=== PATIENT | female | born 1950 | race Caucasian/White ===

== ENCOUNTER 2018-02-26 10:24 | Inpatient (IN) | payer MEDICARE ==
[~2018-02-26] VITALS: Ht 160 cm; Wt 60.5 kg
[2018-02-26 11:30] LABS: BASOPHILS % (AUTO) 0.4 % (0-1); EOSINOPHILS # (AUTO) 0.2 X10'3 (0-0.9); HEMATOCRIT 39.9 % (35.0-45.0); HEMOGLOBIN 12.9 g/dl (12.0-16.0); LYMPHOCYTES # (AUTO) 1.6 X10'3 (1.1-4.8); LYMPHOCYTES % (AUTO) 24.3 % (21-51); MEAN CORPUSCULAR HEMOGLOBIN 29.6 PG (27.0-31.0); MEAN CORPUSCULAR HGB CONC 32.5 % (33.0-36.5); MEAN CORPUSCULAR VOLUME 91.2 FL (78-98); MEAN PLATELET VOLUME 7.6 FL (7.4-10.4); MONOCYTES # (AUTO) 0.6 X10'3 (0-0.9); MONOCYTES % (AUTO) 9.2 % (2-12); NEUTROPHILS # (AUTO) 4.1 X10'3 (1.8-7.7); NEUTROPHILS % (AUTO) 63.1 % (42-75); PLATELET COUNT 372 X10'3 (140-440); RED BLOOD COUNT 4.37 X10'6 (4.20-5.60); RED CELL DISTRIBUTION WIDTH 14.6 % (11.5-14.5); WHITE BLOOD COUNT 6.5 X10'3 (4.5-11.0)
[2018-02-26 11:36] LABS: PARTIAL THROMBOPLASTIN TIME 26 SECONDS (22-32); PROTHROMBIN TIME 10.1 SECONDS (9.0-12.0)
[2018-02-26 11:38] LABS: ALANINE AMINOTRANSFERASE 22 U/L (12-78); ALBUMIN 3.9 G/DL (3.4-5.0); ALBUMIN/GLOBULIN RATIO 1.3 (1.1-1.5); ALKALINE PHOSPHATASE 80 IU/L (46-116); ANION GAP 8 (8-16); ASPARTATE AMINO TRANSFERASE 18 U/L (10-37); BILIRUBIN,TOTAL 0.5 MG/DL (0.1-1.0); BLOOD UREA NITROGEN 20 MG/DL (7-18); BUN/CREATININE RATIO 22.5 (6.6-38.0); CALCIUM 9.2 MG/DL (8.5-10.1); CHLORIDE 105 MMOL/L (99-107); CREATININE 0.89 MG/DL (0.40-0.90); GLUCOSE 102 MG/DL (70-104); POTASSIUM 4.1 MMOL/L (3.5-5.1); SODIUM 141 MMOL/L (135-145); TOTAL CARBON DIOXIDE 27.8 MMOL/L (24-32); eGFR 63 ML/MIN
[2018-02-26] MEDS ORDERED: potassium Cl 40MEQ/NS 500ml 500 ML IV PRN ×2 (12:15)
[2018-02-26] MEDS ORDERED: magnesium 4gm in 100ml NS 100 ML IV PRN (12:15)
[2018-02-26] MEDS ORDERED: morphine 2 MG/ML inj. syringe IV PRN (12:15)
[2018-02-26] MEDS ORDERED: magnesium Cl slow-release 64mg tablet PO PRN (12:15)
[2018-02-26] MEDS ORDERED: ondansetron/PF 4mg/2ml inj IV PRN (12:15)
[2018-02-26] MEDS ORDERED: potassium Cl 20 mEq SR tablet PO PRN ×2 (12:15)
[2018-02-26] MEDS ORDERED: NO HOME MEDS (12:38)
[2018-02-26] MEDS ORDERED: acetaminophen 325mg tablet PO ONE (15:25)
[2018-02-26 17:00] VITALS: BP 115/68
[2018-02-26] MEDS ORDERED: aminophylline 250mg/10ml inj. IV PRN (17:45)
[2018-02-26] MEDS ORDERED: regadenoson 0.4mg/5ml syringe IV PRN (17:45)
[2018-02-26] MEDS ORDERED: metoprolol tartrate 1mg/ml inj IV PRN (17:45)
[2018-02-26] MEDS ORDERED: nitroGLYCERIN 0.4mg SUBLingual tab SL PRN (17:45)
[2018-02-26] MEDS ORDERED: LORazepam 2 mg/ml vial IV ONE (19:35)
[2018-02-26 20:00] VITALS: BP 109/69
[2018-02-26] MEDS ORDERED: famotidine 20mg tablet PO SCH (21:00)
[2018-02-27] VITALS (12 sets, daily range): BP systolic 98–115; BP diastolic 52–67
[2018-02-27 05:16] LABS: BASOPHILS % (AUTO) 0.4 % (0-1); EOSINOPHILS # (AUTO) 0.3 X10'3 (0-0.9); EOSINOPHILS % (AUTO) 5.1 % (0-6); HEMOGLOBIN 12.5 g/dl (12.0-16.0); LYMPHOCYTES # (AUTO) 1.5 X10'3 (1.1-4.8); LYMPHOCYTES % (AUTO) 28.6 % (21-51); MEAN CORPUSCULAR HEMOGLOBIN 30.1 PG (27.0-31.0); MEAN CORPUSCULAR HGB CONC 32.9 % (33.0-36.5); MEAN CORPUSCULAR VOLUME 91.4 FL (78-98); MEAN PLATELET VOLUME 7.8 FL (7.4-10.4); MONOCYTES # (AUTO) 0.6 X10'3 (0-0.9); MONOCYTES % (AUTO) 11.2 % (2-12); NEUTROPHILS # (AUTO) 2.8 X10'3 (1.8-7.7); NEUTROPHILS % (AUTO) 54.7 % (42-75); PLATELET COUNT 324 X10'3 (140-440); RED BLOOD COUNT 4.16 X10'6 (4.20-5.60); RED CELL DISTRIBUTION WIDTH 14.6 % (11.5-14.5); WHITE BLOOD COUNT 5.2 X10'3 (4.5-11.0)
[2018-02-27 05:19] LABS: ALBUMIN 3.4 G/DL (3.4-5.0); ANION GAP 10 (8-16); BLOOD UREA NITROGEN 18 MG/DL (7-18); BUN/CREATININE RATIO 19.8 (6.6-38.0); CALCIUM 8.5 MG/DL (8.5-10.1); CHLORIDE 105 MMOL/L (99-107); CREATININE 0.91 MG/DL (0.40-0.90); GLUCOSE 96 MG/DL (70-104); MAGNESIUM 2.2 MG/DL (1.5-2.4); POTASSIUM 4.1 MMOL/L (3.5-5.1); SODIUM 141 MMOL/L (135-145); TOTAL CARBON DIOXIDE 26.2 MMOL/L (24-32); eGFR 61 ML/MIN
[2018-02-27] MEDS ORDERED: mag hydrox/Alum hydrox/simeth 30ml oral suspension PO PRN (08:00)
[2018-02-27] MEDS ORDERED: acetaminophen 325mg tablet PO PRN (08:00)
[2018-02-27] MEDS ORDERED: K and/or MAG REPLACEMENT MC SCH (08:00)
[2018-02-27] MEDS ORDERED: regadenoson 0.4mg/5ml syringe IV ONE (09:11)
[2018-02-27] MEDS ORDERED: aminophylline inj. 10 ML IV ONE (09:11)
[2018-02-27] MEDS ORDERED: pneumococcal 23-VAL P-sac vacc 25 mcg/0.5ml vial IMVAC ONE (10:00)
[2018-02-27] MEDS ORDERED: PANT-47 PO (12:57)
== END 2018-02-27 14:00 | disposition home or self-care (01) | DRG 392 ==
LOC: ER 10:25 → ED HOLD 12:13 → SUR 3N 15:31
PROVIDERS: ADMIT Internal Medicine; ATTEND Family Medicine
PROC: 3E02340 Introduction of Influenza Vaccine into Muscle, Percutaneous Approach (ICD-10-PCS; principal; 2018-02-27)
PROC: 3E0234Z Introduction of Serum, Toxoid and Vaccine into Muscle, Percutaneous Approach (ICD-10-PCS; 2018-02-27)
PROC: 4A02XM4 Measurement of Cardiac Total Activity, External Approach (ICD-10-PCS; 2018-02-27)
PROC: 3E033HZ Introduction of Radioactive Substance into Peripheral Vein, Percutaneous Approach (ICD-10-PCS; 2018-02-27)
DX: K21.9 Gastro-esophageal reflux disease without esophagitis (principal); I49.3 Ventricular premature depolarization; M79.602 Pain in left arm; Z23 Encounter for immunization; Z90.710 Acquired absence of both cervix and uterus; Z88.6 Allergy status to analgesic agent; Z79.899 Other long term (current) drug therapy
CPT/HCPCS: 36415; 71045; 78452; 80048; 80053; 83735; 84484; 85025; 85610; 85730; 87070; 90732; 93005; 93017; 99285; A9500; G0378; J0280; J2060; J2270; J2405; Q2037

== ENCOUNTER 2021-11-26 10:54 | Observation (INO) | payer MEDICARE ==
[~2021-11-26] VITALS: Ht 160 cm; Wt 60.3 kg
[~2021-11-26 10:54] MED LIST: PANT-47 PO
[2021-11-26 12:19] LABS: BASOPHILS % (AUTO) 0.7 % (0-1); EOSINOPHILS # (AUTO) 0.2 X10'3 (0-0.9); EOSINOPHILS % (AUTO) 3.3 % (0-6); HEMATOCRIT 37.4 % (35.0-45.0); HEMOGLOBIN 12.5 g/dl (12.0-16.0); LYMPHOCYTES # (AUTO) 2.1 X10'3 (1.1-4.8); LYMPHOCYTES % (AUTO) 29.5 % (21-51); MEAN CORPUSCULAR HEMOGLOBIN 28.7 PG (27.0-31.0); MEAN CORPUSCULAR HGB CONC 33.5 g/dL (33.0-36.5); MEAN CORPUSCULAR VOLUME 85.7 FL (78-98); MONOCYTES # (AUTO) 0.8 X10'3 (0-0.9); NEUTROPHILS # (AUTO) 3.9 X10'3 (1.8-7.7); NEUTROPHILS % (AUTO) 55.5 % (42-75); PLATELET COUNT 347 X10'3 (140-440); RED BLOOD COUNT 4.37 X10'6 (4.20-5.60); RED CELL DISTRIBUTION WIDTH 16.2 % (11.5-14.5)
[2021-11-26 12:31] LABS: ALANINE AMINOTRANSFERASE 25 U/L (12-78); ALBUMIN 4.1 G/DL (3.4-5.0); ALBUMIN/GLOBULIN RATIO 1.2 (1.1-1.5); ALKALINE PHOSPHATASE 85 IU/L (46-116); ANION GAP 9 (8-16); ASPARTATE AMINO TRANSFERASE 21 U/L (10-37); BILIRUBIN,TOTAL 0.4 MG/DL (0.1-1.0); BLOOD UREA NITROGEN 20 MG/DL (7-18); BUN/CREATININE RATIO 25.3 (6.6-38.0); CALCIUM 9.2 MG/DL (8.5-10.1); CHLORIDE 101 MMOL/L (99-107); CREATININE 0.79 MG/DL (0.40-0.90); GLUCOSE 92 MG/DL (70-104); SODIUM 138 MMOL/L (135-145); TOTAL CARBON DIOXIDE 28.1 MMOL/L (24-32); TOTAL PROTEIN 7.5 G/DL (6.4-8.2); eGFR 72 ML/MIN
[2021-11-26] MEDS ORDERED: aspirin 81mg tab.chew PO ONE (13:45)
[2021-11-26] MEDS ORDERED: magnesium 4gm in 100ml NS 100 ML IV PRN (14:25)
[2021-11-26] MEDS ORDERED: ondansetron/PF 4mg/2ml inj IV PRN (14:25)
[2021-11-26] MEDS ORDERED: magnesium 2GM in 50ml NS 50 ML IV PRN (14:25)
[2021-11-26] MEDS ORDERED: potassium CL 10mEq/100ml bag 100 ML IV PRN (14:25)
[2021-11-26] MEDS ORDERED: POTASSIUM BICARB 20meq eff tab 20 MEQ TABLET.EFF PO PRN ×2 (14:25)
[2021-11-26] MEDS ORDERED: aminophylline 500mg/20ml vial IV PRN (14:25)
[2021-11-26] MEDS ORDERED: morphine 2 MG/ML inj. syringe IV PRN (14:25)
[2021-11-26] MEDS ORDERED: magnesium Cl slow-release 64mg tablet PO PRN (14:25)
[2021-11-26] MEDS ORDERED: nitroGLYCERIN 0.4mg SUBLingual tab SL PRN (14:25)
[2021-11-26] MEDS ORDERED: regadenoson 0.4mg/5ml syringe IV PRN (14:25)
[2021-11-26 16:00] LABS: MAGNESIUM 2.2 MG/DL (1.5-2.4); POTASSIUM 3.7 MMOL/L (3.5-5.1)
[2021-11-26 16:30] VITALS: BP 118/60
[2021-11-26] MEDS ORDERED: VALS40TA2 PO (17:47)
[2021-11-26] MEDS ORDERED: FLEC100T35 PO (17:47)
[2021-11-26 19:00] VITALS: BP 90/52
[2021-11-26] MEDS: K and/or MAG REPLACEMENT MC SCH (20:00)
[2021-11-26] MEDS: heparin, porcine 5000 units/ml vial SQ SCH (21:42)
[2021-11-26 22:00] VITALS: BP 106/56
[2021-11-27] VITALS (9 sets, daily range): BP systolic 100–129; BP diastolic 52–64
[2021-11-27 06:51] LABS: ALBUMIN 3.5 G/DL (3.4-5.0); ANION GAP 7 (8-16); BLOOD UREA NITROGEN 16 MG/DL (7-18); BUN/CREATININE RATIO 19.5 (6.6-38.0); CALCIUM 8.9 MG/DL (8.5-10.1); CHLORIDE 105 MMOL/L (99-107); CREATININE 0.82 MG/DL (0.40-0.90); GLUCOSE 92 MG/DL (70-104); MAGNESIUM 2.3 MG/DL (1.5-2.4); SODIUM 141 MMOL/L (135-145); TOTAL CARBON DIOXIDE 28.6 MMOL/L (24-32); eGFR 69 ML/MIN
[2021-11-27 07:03] LABS: BASOPHILS % (AUTO) 0.8 % (0-1); EOSINOPHILS # (AUTO) 0.3 X10'3 (0-0.9); HEMATOCRIT 36.4 % (35.0-45.0); HEMOGLOBIN 12.1 g/dl (12.0-16.0); LYMPHOCYTES # (AUTO) 1.5 X10'3 (1.1-4.8); LYMPHOCYTES % (AUTO) 28.4 % (21-51); MEAN CORPUSCULAR HEMOGLOBIN 28.5 PG (27.0-31.0); MEAN CORPUSCULAR HGB CONC 33.2 g/dL (33.0-36.5); MEAN CORPUSCULAR VOLUME 85.9 FL (78-98); MEAN PLATELET VOLUME 7.4 FL (7.4-10.4); MONOCYTES # (AUTO) 0.6 X10'3 (0-0.9); MONOCYTES % (AUTO) 11.1 % (2-12); NEUTROPHILS # (AUTO) 2.8 X10'3 (1.8-7.7); NEUTROPHILS % (AUTO) 54.7 % (42-75); PLATELET COUNT 317 X10'3 (140-440); RED BLOOD COUNT 4.24 X10'6 (4.20-5.60); RED CELL DISTRIBUTION WIDTH 16.6 % (11.5-14.5); WHITE BLOOD COUNT 5.1 X10'3 (4.5-11.0)
[2021-11-27] MEDS: normal saline 500ml IV soln 500 ML IV SCH ×2 (07:55→10:46)
[2021-11-27] MEDS: heparin, porcine 5000 units/ml vial SQ SCH (08:00)
[2021-11-27] MEDS: K and/or MAG REPLACEMENT MC SCH (08:00)
[2021-11-27] MEDS ORDERED: aminophylline inj. 0 ML IV ONE (09:00)
--- NOTE | 2021-11-27 10:37 | NUR ---
PAGER ID: [phone] MESSAGE: [facility] ON TELE, THE [facility] SCAN REPORT IS AVAILABLE ON [id number], THX
--- NOTE | 2021-11-27 11:59 | NUR ---
Discharged Home with all belongings. is driving. Stable and steady ambulation. Instructions for follow up care and medication needs.
== END 2021-11-27 11:25 | disposition home or self-care (01) ==
LOC: ER 10:55 → ED HOLD 14:29 → EDBEDREQ 15:19 → PCU 3S 15:46
PROVIDERS: ADMIT Internal Medicine; ATTEND Internal Medicine
DX: R07.89 Other chest pain (principal); K21.9 Gastro-esophageal reflux disease without esophagitis; I49.3 Ventricular premature depolarization; Z90.710 Acquired absence of both cervix and uterus; Z79.899 Other long term (current) drug therapy
CPT/HCPCS: 36415; 71045; 78452; 80048; 80053; 83735; 83880; 84132; 84484; 85025; 93005; 93017; 96360; 96372; 99285; A9500; G0378; J1644; J2785; J7040; J0280

== ENCOUNTER 2022-01-31 05:57 | Day surgery (SDC) | payer MEDICARE ==
[2022-01-13 09:19] LABS: BASOPHILS % (AUTO) 0.5 % (0-1); EOSINOPHILS # (AUTO) 0.1 X10'3 (0-0.9); EOSINOPHILS % (AUTO) 1.2 % (0-6); HEMATOCRIT 37.9 % (35.0-45.0); HEMOGLOBIN 12.8 g/dl (12.0-16.0); LYMPHOCYTES # (AUTO) 0.6 X10'3 (1.1-4.8); LYMPHOCYTES % (AUTO) 8.8 % (21-51); MEAN CORPUSCULAR HEMOGLOBIN 28.5 PG (27.0-31.0); MEAN CORPUSCULAR HGB CONC 33.7 g/dL (33.0-36.5); MEAN CORPUSCULAR VOLUME 84.5 FL (78-98); MEAN PLATELET VOLUME 6.7 FL (7.4-10.4); MONOCYTES # (AUTO) 0.7 X10'3 (0-0.9); MONOCYTES % (AUTO) 9.6 % (2-12); NEUTROPHILS # (AUTO) 5.5 X10'3 (1.8-7.7); NEUTROPHILS % (AUTO) 79.9 % (42-75); PLATELET COUNT 351 X10'3 (140-440); RED BLOOD COUNT 4.49 X10'6 (4.20-5.60); RED CELL DISTRIBUTION WIDTH 15.4 % (11.5-14.5); WHITE BLOOD COUNT 6.9 X10'3 (4.5-11.0)
[2022-01-13 09:27] LABS: APTT 26 SECONDS (22-32)
[2022-01-13 09:28] LABS: ANION GAP 7 (8-16); BLOOD UREA NITROGEN 14 MG/DL (7-18); BUN/CREATININE RATIO 17.1 (6.6-38.0); CHLORIDE 102 MMOL/L (99-107); CREATININE 0.82 MG/DL (0.40-0.90); GLUCOSE 110 MG/DL (70-104); POTASSIUM 3.8 MMOL/L (3.5-5.1); SODIUM 137 MMOL/L (135-145); TOTAL CARBON DIOXIDE 28.3 MMOL/L (24-32); eGFR 69 ML/MIN
[~2022-01-31] VITALS: Ht 160 cm; Wt 60.7 kg
[2022-01-31] VITALS (11 sets, daily range): BP systolic 96–118; BP diastolic 51–72
[~2022-01-31 05:57] MED LIST changes: +FLEC100T35 PO; -PANT-47 PO
[2022-01-31] MEDS ORDERED: diphenhydrAMINE 25mg capsule PO PRN (06:15)
[2022-01-31] MEDS ORDERED: LORazepam 0.5 MG tablet PO PRN (06:15)
[2022-01-31] MEDS ORDERED: normal saline 1,000 ML IV SCH (06:15)
[2022-01-31] MEDS ORDERED: UBID100C45 PO (06:26)
[2022-01-31] MEDS ORDERED: ZINC50TA60 PO (06:26)
[2022-01-31] MEDS ORDERED: [UNRECOGNIZED DRUG - OTHER] (06:26)
[2022-01-31] MEDS ORDERED: ASCO-139 PO (06:26)
[2022-01-31] MEDS ORDERED: CHOL20004 PO (06:26)
[2022-01-31] MEDS ORDERED: RED600TA PO (06:26)
[2022-01-31] MEDS ORDERED: MAGN500C4 PO (06:27)
[2022-01-31] MEDS ORDERED: nitroGLYCERIN-Tridil 50MG/D5W 250 ML IV ONE (06:41)
[2022-01-31] MEDS ORDERED: verapamil 2.5 mg/ml inj IV ONE (06:41)
[2022-01-31] MEDS ORDERED: iohexol 350MG/ML 100ml bottle IV ONE (06:42)
[2022-01-31] MEDS ORDERED: LIDOcaine 1% (10mg/ml) 2ml vial ONE (06:42)
[2022-01-31] MEDS ORDERED: fentaNYL/PF 50MCG/1 ML 2ML syringe ONE (06:42)
[2022-01-31] MEDS ORDERED: midazolam 1 mg/ML 2ml injection ONE (06:42)
[2022-01-31] MEDS ORDERED: iohexol 350 MG/ML 50ML vial IV ONE (06:43)
[2022-01-31] MEDS ORDERED: heparin 1,000unit/ml 10ml vial 10 ML ONE (06:49)
[2022-01-31] MEDS ORDERED: ondansetron/PF 4mg/2ml inj IV PRN (09:15)
[2022-01-31] MEDS ORDERED: normal saline 1000ml 1,000 ML IV SCH (09:15)
[2022-01-31] MEDS ORDERED: OXAZEpam 15mg capsule PO PRN (09:15)
[2022-01-31] MEDS ORDERED: HYDROcodone/acetaminophen 10/325mg tab PO PRN (09:15)
[2022-01-31] MEDS ORDERED: nitroGLYCERIN 0.4mg SUBLingual tab SL PRN (09:15)
[2022-01-31] MEDS ORDERED: proCHLORperazine 10 MG/2 ml inj IV PRN (09:15)
[2022-01-31] MEDS ORDERED: HYDROcodone/acetaminophen 5mg/325mg tablet PO PRN (09:15)
== END 2022-01-31 11:55 | disposition home or self-care (01) ==
LOC: SSTAY O 05:57
PROVIDERS: ATTEND Internal Medicine Interventional Cardiology
DX: R07.9 Chest pain, unspecified (principal); I34.0 Nonrheumatic mitral (valve) insufficiency; Z88.6 Allergy status to analgesic agent; Z98.890 Other specified postprocedural states; Z79.899 Other long term (current) drug therapy
CPT/HCPCS: 36415; 80048; 85025; 85610; 85730; 93005; 93458; 99152; 99153; C1769; C1894; J1644; J2250; J3010; J3490; J7030; Q0163; Q9967; A4620; A6258; A6402